=== PATIENT | female | born 1940 | race African-American/Black ===

== ENCOUNTER → 2019-06-24 | Outpatient (CLI) | payer MEDICARE ==
[~2019-06-24] MED LIST: ATOR20TA65 PO; CYAN-50 PO; DIGO125T82 PO; DILT180C66 PO; DOCU-138 PO; FLEC50TA2 PO; LOSA50TA41 PO; OMEG1CAP50; PREG50CA PO; RIVA20TA PO
== END | disposition home or self-care (01) ==
LOC: CARD 09:31
PROVIDERS: ATTEND Psychiatry & Neurology Neurology
DX: I69.911 Memory deficit following unspecified cerebrovascular disease (principal); F42.2 Mixed obsessional thoughts and acts

== ENCOUNTER 2019-09-17 08:35 | Emergency (ER) | payer MEDICARE, MEDICAID ==
[~2019-09-17] VITALS: Ht 165.1 cm; Wt 60.0 kg
[2019-09-17] MEDS ORDERED: BACITRACIN 15GM TUBE TOP ONE (11:30)
[2019-09-17 11:51] VITALS: BP 172/77
== END 2019-09-17 11:53 | disposition home or self-care (01) ==
LOC: ER 08:35
DX: R51 Headache (principal); W01.0XXA Fall on same level from slipping, tripping and stumbling without subsequent striking against object, initial encounter; Y93.01 Activity, walking, marching and hiking; Y92.89 Other specified places as the place of occurrence of the external cause; I48.91 Unspecified atrial fibrillation; Z86.73 Personal history of transient ischemic attack (TIA), and cerebral infarction without residual deficits; Z88.6 Allergy status to analgesic agent
CPT/HCPCS: 70486; 99284

== ENCOUNTER 2023-01-04 08:06 | Inpatient (IN) | payer MEDICARE, MEDICAID ==
[~2023-01-04] VITALS: Ht 170.2 cm; Wt 86.7 kg
[~2023-01-04 08:06] MED LIST changes: +DIGO125T PO; -DIGO125T82 PO
[2023-01-04] MEDS ORDERED: ASPIRIN 81MG TABLET PO ONE (08:45)
[2023-01-04 09:04] LABS: BASOPHILS % 0.7 % (0.0-2.0); EOSINOPHILS % 1.5 % (0.0-5.0); HEMATOCRIT. 40.3 % (36.0-48.0); HEMOGLOBIN. 13.7 g/dL (12.0-16.0); LYMPHOCYTES % 39.7 % (20.0-50.0); MEAN CORPUSCULAR HEMOGLOBIN 30.6 pg (28.0-32.0); MEAN CORPUSCULAR VOLUME 89.9 fL (81.0-99.0); MEAN PLATELET VOLUME 9.3 fl (7.4-10.4); MONOCYTES % 9.9 % (2.0-8.0); NEUTROPHILS % 48.2 % (40.0-76.0); PLATELET 181 x1000/uL (130-400); RED BLOOD CELL COUNT 4.49 mill/uL (4.2-5.4); RED CELL DISTRIBUTION WIDTH 14.5 % (11.6-14.6)
[2023-01-04 09:09] LABS: CHLORIDE 109 mEq/L (98-107)
[2023-01-04 09:23] LABS: INR 1.1; PARTIAL THROMBOPLASTIN TIME 34.7 sec (23.4-31.0); PROTHROMBIN TIME 12.2 sec (9.6-11.0)
[2023-01-04] MEDS ORDERED: ONDANSETRON HCL 4MG/2ML INJ IV PRN (11:15)
[2023-01-04] MEDS ORDERED: LORAZEPAM 2MG/ML CPJ IV PRN (11:15)
[2023-01-04] MEDS ORDERED: CLONIDINE 0.1MG TABLET PO PRN (11:15)
[2023-01-04] MEDS ORDERED: IOHEXOL-350 100 ML BOTTLE ONE (12:38)
[2023-01-04] MEDS: ACETAMINOPHEN 325MG TABLET PO PRN (13:45)
[2023-01-04 15:35] VITALS: BP 143/73
[2023-01-04 15:46] VITALS: BP 143/73
[2023-01-04] MEDS ORDERED: HYDR12.54 PO (16:02)
[2023-01-04] MEDS ORDERED: POTA-185 PO (16:02)
[2023-01-04] MEDS ORDERED: DOCU250C69 PO (16:02)
[2023-01-04] MEDS ORDERED: SACU1TAB7 PO (16:02)
[2023-01-04] MEDS ORDERED: DILT120C94 PO (16:02)
[2023-01-04] MEDS ORDERED: ESTR1PAT68 TD (16:03)
[2023-01-04] MEDS ORDERED: MEDICATION NOT ON FORMULARY EA (Potassium Chloride (Klor-Con 10) 10 MEQ) PO SCH (16:45)
[2023-01-04] MEDS ORDERED: DILTIAZEM HCL 120MG CAPSULE ER 24HR PO SCH (17:00)
[2023-01-04] MEDS ORDERED: DILTIAZEM HCL 90MG TABLET PO SCH (17:00)
[2023-01-04] MEDS: RIVAROXABAN 20 MG TABLET PO SCH (17:31)
[2023-01-04] MEDS: FLECAINIDE 50MG TABLET PO SCH (17:33)
[2023-01-04] MEDS ORDERED: CARD12 PO (18:14)
[2023-01-04 18:30] LABS: HEPATITIS B SURFACE ANTIGEN NEGATIVE
[2023-01-04 20:00] VITALS: BP 143/71
[2023-01-04] MEDS: SACUBITRIL/VALSARTAN 49MG/51MG TABLET PO SCH (20:47)
[2023-01-04] MEDS: DILTIAZEM HCL 60MG TABLET PO SCH (20:47)
[2023-01-04] MEDS: DOCUSATE SODIUM 250MG CAPSULE PO SCH (20:48)
[2023-01-04] MEDS: ATORVASTATIN CALCIUM 20MG TABLET PO SCH (20:48)
[2023-01-04] MEDS ORDERED: PREGABALIN 50 MG CAPSULE PO SCH (21:00)
[2023-01-04 22:36] LABS: CLARITY URINE CLEAR (CLEAR); COLOR URINE YELLOW (YELLOW); KETONES URINE NEGATIVE (NEGATIVE); LEUKOCYTE ESTERASE URINE NEGATIVE (NEGATIVE); NITRITE URINE NEGATIVE (NEGATIVE); OCCULT BLOOD URINE NEGATIVE (NEGATIVE); PH URINE 5.5 (4.5-8.0); PROTEIN URINE NEGATIVE (NEGATIVE); SPECIFIC GRAVITY URINE 1.015 (1.005-1.030); UROBILINOGEN URINE 0.2 E.U./dL (0.2-1.0)
[2023-01-04 22:46] LABS: *AMPHETAMINES SCREEN URINE NEGATIVE (NEGATIVE); *BARBITURATES SCREEN URINE NEGATIVE (NEGATIVE); *BENZODIAZEPINES SCREEN URINE NEGATIVE (NEGATIVE); *COCAINE SCREEN URINE NEGATIVE (NEGATIVE); CANNABINOID URINE SCREEN NEGATIVE (NEGATIVE); METHADONE URINE SCREEN NEGATIVE (NEGATIVE); OPIATES URINE SCREEN NEGATIVE (NEGATIVE); PHENCYCLIDINE URINE SCREEN NEGATIVE (NEGATIVE)
[2023-01-05] VITALS: BP 166/72
[2023-01-05] MEDS: ACETAMINOPHEN 325MG TABLET PO PRN (00:07)
[2023-01-05 04:00] VITALS: BP 116/59
[2023-01-05 06:54] LABS: BASOPHILS % 0.7 % (0.0-2.0); EOSINOPHILS % 1.9 % (0.0-5.0); HEMATOCRIT. 37.1 % (36.0-48.0); HEMOGLOBIN. 12.4 g/dL (12.0-16.0); LYMPHOCYTES % 46.7 % (20.0-50.0); MEAN CORPUSCULAR HEMOGLOBIN 30.2 pg (28.0-32.0); MEAN CORPUSCULAR VOLUME 90.3 fL (81.0-99.0); MEAN PLATELET VOLUME 9.4 fl (7.4-10.4); MONOCYTES % 8.2 % (2.0-8.0); NEUTROPHILS % 42.5 % (40.0-76.0); PLATELET 181 x1000/uL (130-400); RED BLOOD CELL COUNT 4.11 mill/uL (4.2-5.4); RED CELL DISTRIBUTION WIDTH 14.4 % (11.6-14.6)
[2023-01-05 07:47] LABS: CHLORIDE 108 mEq/L (98-107)
[2023-01-05 08:00] VITALS: BP 157/78
[2023-01-05] MEDS: DILTIAZEM HCL 60MG TABLET PO SCH ×2 (08:43→17:00)
[2023-01-05] MEDS: POTASSIUM CHLORIDE 10MEQ TABLET SR PO SCH (08:43)
[2023-01-05] MEDS: HYDROCHLOROTHIAZIDE 12.5MG CAPSULE PO SCH (08:43)
[2023-01-05] MEDS: CYANOCOBALAMIN 1000MCG TABLET PO SCH (08:44)
[2023-01-05] MEDS: FLECAINIDE 50MG TABLET PO SCH ×2 (08:44→17:32)
[2023-01-05] MEDS: SACUBITRIL/VALSARTAN 49MG/51MG TABLET PO SCH ×2 (08:49→17:32)
[2023-01-05] MEDS ORDERED: LOSARTAN POTASSIUM 50 MG TABLET PO SCH (09:00)
[2023-01-05 12:00] VITALS: BP 124/56
[2023-01-05] MEDS: CEFTRIAXONE 1GM PREMIX 50 ML IV SCH (13:18)
[2023-01-05 16:00] VITALS: BP 125/64
[2023-01-05] MEDS: RIVAROXABAN 20 MG TABLET PO SCH (17:38)
[2023-01-05 20:00] VITALS: BP 143/70
[2023-01-05] MEDS ORDERED: REGADENOSON 0.4 MG/5 ML IV NR (21:30)
[2023-01-05] MEDS: DOCUSATE SODIUM 250MG CAPSULE PO SCH (22:18)
[2023-01-05] MEDS: ATORVASTATIN CALCIUM 20MG TABLET PO SCH (22:18)
[2023-01-06] VITALS: BP 146/36
[2023-01-06 04:00] VITALS: BP 153/77
[2023-01-06 07:28] LABS: BASOPHILS % 0.6 % (0.0-2.0); EOSINOPHILS % 2.4 % (0.0-5.0); HEMATOCRIT. 38.5 % (36.0-48.0); HEMOGLOBIN. 12.9 g/dL (12.0-16.0); LYMPHOCYTES % 46.5 % (20.0-50.0); MEAN CORPUSCULAR HEMOGLOBIN 30.7 pg (28.0-32.0); MEAN CORPUSCULAR VOLUME 91.4 fL (81.0-99.0); MEAN PLATELET VOLUME 9.8 fl (7.4-10.4); MONOCYTES % 11.1 % (2.0-8.0); NEUTROPHILS % 39.4 % (40.0-76.0); PLATELET 191 x1000/uL (130-400); RED BLOOD CELL COUNT 4.21 mill/uL (4.2-5.4); RED CELL DISTRIBUTION WIDTH 14.4 % (11.6-14.6)
[2023-01-06 08:00] VITALS: BP 165/78
[2023-01-06 08:09] LABS: CHLORIDE 110 mEq/L (98-107)
[2023-01-06] MEDS: CYANOCOBALAMIN 1000MCG TABLET PO SCH (08:35)
[2023-01-06] MEDS: DILTIAZEM HCL 60MG TABLET PO SCH ×2 (08:35→17:51)
[2023-01-06] MEDS: HYDROCHLOROTHIAZIDE 12.5MG CAPSULE PO SCH (08:35)
[2023-01-06] MEDS: FLECAINIDE 50MG TABLET PO SCH ×2 (08:36→17:52)
[2023-01-06] MEDS: SACUBITRIL/VALSARTAN 49MG/51MG TABLET PO SCH ×2 (08:36→17:50)
[2023-01-06] MEDS: CEFTRIAXONE 1GM PREMIX 50 ML IV SCH (08:41)
[2023-01-06 12:00] VITALS: BP 148/78
[2023-01-06 16:00] VITALS: BP 133/67
[2023-01-06] MEDS: RIVAROXABAN 20 MG TABLET PO SCH (17:51)
[2023-01-06 20:52] VITALS: BP 136/75
[2023-01-06] MEDS: DOCUSATE SODIUM 250MG CAPSULE PO SCH (21:54)
[2023-01-06] MEDS: ATORVASTATIN CALCIUM 20MG TABLET PO SCH (21:55)
[2023-01-07] VITALS: BP 129/60
[2023-01-07 04:00] VITALS: BP 132/64
[2023-01-07 08:00] VITALS: BP 142/88
[2023-01-07] MEDS: CEFTRIAXONE 1GM PREMIX 50 ML IV SCH (08:58)
[2023-01-07] MEDS: CYANOCOBALAMIN 1000MCG TABLET PO SCH (09:00)
[2023-01-07] MEDS: FLECAINIDE 50MG TABLET PO SCH ×2 (09:00→18:08)
[2023-01-07] MEDS: DILTIAZEM HCL 60MG TABLET PO SCH ×2 (09:00→18:09)
[2023-01-07 12:00] VITALS: BP 128/71
[2023-01-07 16:00] VITALS: BP 134/70
[2023-01-07] MEDS ORDERED: SACUBITRIL/VALSARTAN 49MG/51MG TABLET PO SCH (17:00)
[2023-01-07] MEDS: RIVAROXABAN 20 MG TABLET PO SCH (18:08)
[2023-01-07] MEDS: POTASSIUM CHLORIDE 10MEQ TABLET SR PO SCH (18:08)
[2023-01-07] MEDS: HYDROCHLOROTHIAZIDE 12.5MG CAPSULE PO SCH (18:09)
[2023-01-07 20:00] VITALS: BP 118/75
[2023-01-07] MEDS: DOCUSATE SODIUM 250MG CAPSULE PO SCH (21:34)
[2023-01-07] MEDS: ATORVASTATIN CALCIUM 20MG TABLET PO SCH (21:34)
[2023-01-08] VITALS: BP 140/65
[2023-01-08 04:00] VITALS: BP 146/71
[2023-01-08 08:00] VITALS: BP 149/57
[2023-01-08] MEDS ORDERED: REGADENOSON 0.4 MG/5 ML IV ONE (08:32)
[2023-01-08] MEDS: DILTIAZEM HCL 60MG TABLET PO SCH (09:11)
[2023-01-08] MEDS: HYDROCHLOROTHIAZIDE 12.5MG CAPSULE PO SCH (09:11)
[2023-01-08] MEDS: CYANOCOBALAMIN 1000MCG TABLET PO SCH (09:13)
[2023-01-08] MEDS: FLECAINIDE 50MG TABLET PO SCH (09:13)
[2023-01-08 12:00] VITALS: BP 149/80
[2023-01-08 12:21] VITALS: BP 149/57
== END 2023-01-08 16:15 | disposition home health service (06) | DRG 206 ==
LOC: ER 08:06 → 3WST 11:23 → EDBEDREQ 11:29 → EDBEDREQTM 11:29 → ENRESERV 12:09 → 3WST 15:00
PROVIDERS: ADMIT Internal Medicine Nephrology; ATTEND Internal Medicine Nephrology
DX: M94.0 Chondrocostal junction syndrome [Tietze] (principal); J84.9 Interstitial pulmonary disease, unspecified; I50.32 Chronic diastolic (congestive) heart failure; I11.0 Hypertensive heart disease with heart failure; E78.5 Hyperlipidemia, unspecified; I48.0 Paroxysmal atrial fibrillation; Z20.822 Contact with and (suspected) exposure to COVID-19; G62.9 Polyneuropathy, unspecified; Z79.01 Long term (current) use of anticoagulants; Z86.73 Personal history of transient ischemic attack (TIA), and cerebral infarction without residual deficits; Z79.899 Other long term (current) drug therapy; Z90.710 Acquired absence of both cervix and uterus; Z90.13 Acquired absence of bilateral breasts and nipples; Z87.891 Personal history of nicotine dependence
CPT/HCPCS: 36415; 71045; 71275; 78452; 80048; 80053; 80061; 80305; 81003; 83880; 84443; 84484; 85025; 85379; 86803; 87340; 87426; 93005; 93017; 93306; 93970; 97116; 97162; 99285; A6261; A9500; C9803; J0696; J2060; J2785; Q9967